=== PATIENT | male | born 1945 | race Caucasian/White ===

== ENCOUNTER → 2020-02-13 11:06 | Outpatient (CLI) | payer MEDICARE, OTHER, SELFPAY ==
[2020-02-13 13:13] LABS: COVID19 -Nasal RAPID Negative (Negative)
== END ==
PROVIDERS: Family Provider Family Medicine; PCP Family Medicine; Visit Provider Physician Assistant
DX: Z01.812 Encounter for preprocedural laboratory examination (principal); Z20.822 Contact with and (suspected) exposure to COVID-19
CPT/HCPCS: 87635; C9803

== ENCOUNTER 2020-02-14 08:50 | Day surgery (SDC) | payer MEDICARE, OTHER, SELFPAY ==
[2020-02-14] MEDS: CATARACT EYE COMPOUND (10 DROPS/SYRINGE) 3 DROPS EYE-OP (10:06)
[2020-02-14] MEDS: PROPARACAINE 0.5% OPHTH SOL 2 DROPS EYE-OP (10:06)
[2020-02-14 10:11] VITALS: BP 128/71; PULSE 68; RESP 16; TEMP 36.5; O2SAT 99; BMI 24.7
--- NOTE | 2020-02-14 11:17 | PM.PREOP ---
Pre-operative Note Interval Note History & Physical reviewed/Exam performed by Physician: Yes Changes to H&P: No
--- NOTE | 2020-02-14 11:17 | PM.OP.1 ---
Operative Date/Time/Diagnoses Pre-op diagnosis: Nuclear cataract right eye Procedure & Clinicians Procedure: Cataract Surgery Same procedure as scheduled: Yes Surgeon: Abelino Oneil Anesthesia Type: MAC +/- and Sedation Operative Notes Procedure in detail: Patient brought to the operating suite. Tetracaine drops placed in the right eye. Patient was prepped and draped in sterile manner. Wire lid speculum was placed in the eye. Betadine drops were placed on the eye. This was irrigated. Lidocaine jelly was placed on the eye. A paracentesis port was created with a side-port blade. 0.1 mL 1% preservative free lidocaine was injected into the anterior chamber. The anterior chamber was deepened with viscoelastic. 2.6 mm keratome was used to create a temporal clear corneal incision. Cystotome and Utrata forceps were used to create continuous tear capsulorrhexis. Balanced salt solution was used to hydro dissect the nucleus. The phacoemulsification handpiece was inserted and the nucleus was removed using the stop and chop technique. The irrigation aspiration handpiece was inserted and the remaining cortex was removed. Anterior chamber was deepened with viscoelastic. An Haskins ZCB00 intraocular lens with a power of 20.0 was injected into the capsular bag. Irrigation aspiration handpiece was inserted and the remaining viscoelastic was removed. Incision was hydrated with balanced salt solution and found to be leak free with pressure with Weck-Agata sponges. 0.1 mL Vigamox injected anterior chamber. 0.3 mL Kenalog 10 mg was injected subconjunctivally. Lid speculum was removed. The patient left the operating room in excellent condition. Complications: none Post-operative Condition: stable Disposition: same day surgery
[2020-02-14] MEDS: CHONDROIDTIN/SOD HYALURONATE 1.05 ML SYRINGE INTRAOCULA (11:38)
[2020-02-14] MEDS: LIDOCAINE JELLY 2% 5 ML 1 APPLIC TOP (11:38)
[2020-02-14] MEDS: TRIAMCINOLONE 50 MG/5 ML VIAL INJ (11:39)
[2020-02-14] MEDS: TETRACAINE 0.5% OPHTH DROPS 4 ML 2 DROPS EYE-OP (11:39)
[2020-02-14] MEDS: MOXIFLOXACIN INJ 5 MG/ML VIAL EYE-OP (11:39)
[2020-02-14] MEDS: PHENYLEPHRINE/LIDOCAINE VIAL (OR) 0.2 ML EYE-OP (11:39)
[2020-02-14] MEDS: BALANCED SALT IRRIG SOLN NO.2 500 ML, EPINEPHrine 1 MG IRR (11:40)
[2020-02-14 12:02] VITALS: BP 127/79; PULSE 69; RESP 16; TEMP 35.9; O2SAT 97
== END 2020-02-14 12:10 | disposition home or self-care (01) ==
PROVIDERS: Family Provider Family Medicine; PCP Family Medicine; Referring Provider Family Medicine; Visit Provider Ophthalmology
PROC: (CPT 66984; principal; 2020-02-14 10:45)
DX: H25.11 Age-related nuclear cataract, right eye (principal)
CPT/HCPCS: 66984; J0171; J2250; J3010; J3301

== ENCOUNTER → 2020-08-02 12:12 | Outpatient (CLI) | payer MEDICARE, OTHER, SELFPAY ==
--- NOTE | 2020-08-02 12:17 | DI.MRI.S_ITS ---
PROCEDURE: MR HEAD/BRAIN WO/W CON INDICATIONS: Dizziness and giddiness TECHNIQUE: Noncontrast axial T1 spin echo, axial T2 fast spin echo, sagittal and axial FLAIR, coronal T2 fast spin echo, axial gradient echo, axial diffusion and ADC through the brain. After the administration of contrast, axial and coronal T1 spin echo with fat saturation through the brain. COMPARISON: None. FINDINGS: Image quality: Excellent. CSF spaces: Basal cisterns are patent. No extra-axial fluid collections. Ventricles are normal in size and shape. Brain: No midline shift. No intracranial bleeds or masses. No abnormal intracranial enhancement. There is cerebral volume loss for age. There is periventricular white matter chronic small vessel ischemic change. The brainstem appears normal. Diffusion-weighted images demonstrate no acute ischemic insults. No chronic ischemic insults. Normal intravascular flow voids are present. Skull and face: Calvarial marrow is normal in signal. Orbits appear normal. Sinuses: Sinuses and mastoids appear clear. IMPRESSION: No evidence of acute ischemia. No acute intracranial signal abnormality or enhancement. Dictated by: Bernardo Guerrero M.D. on 08/02/2020 at 13:13 Approved by: Bernardo Guerrero M.D. on 08/02/2020 at 13:18
== END ==
PROVIDERS: Family Provider Family Medicine; PCP Family Medicine; Referring Provider Family Medicine; Visit Provider Family Medicine
DX: R42 Dizziness and giddiness (principal)
CPT/HCPCS: 70553

== ENCOUNTER → 2023-05-08 09:56 | Outpatient (CLI) | payer MEDICARE, OTHER, SELFPAY ==
--- NOTE | 2023-05-08 09:59 | DI.CT.S_ITS ---
PROCEDURE: CT ABDOMEN PELVIS W CON INDICATIONS: pelvic pain TECHNIQUE: After the administration of intravenous contrast, axial sections acquired from the lung bases to the pubic symphysis. Coronal and sagittal reformats were performed. For radiation dose reduction, the following was used: automated exposure control, adjustment of mA and/or kV according to patient size. COMPARISON: None. FINDINGS: Image quality: Diagnostic. Lower Chest: No significant findings. Fat containing left Bochdalek hernia. ABDOMEN: Liver: Nodular enhancement at the right dome of the liver, (2/10). There is peripheral ill-defined enhancement. Multiple well-circumscribed hepatic cysts. Gallbladder: Decompressed. Biliary ducts: No biliary dilation. Pancreas: No ductal dilation. Spleen: Size is within normal limits. Adrenal Glands: No adrenal nodules. Kidneys and Ureters: No hydronephrosis. No solid mass. No complex renal cystic lesion which requires follow up. Stomach and Bowel: Sigmoid colon diverticulosis. Minimal inflammatory change in the left lower quadrant, (2/66). This is consistent with diverticulitis. No extraluminal gas or fluid collection. There is associated colonic wall thickening. No small bowel obstruction. The stomach is not distended. Normal appendix. Peritoneum: No abnormal intraperitoneal fluid. No free air. Ventral Wall: No significant ventral hernia. Abdominal Nodes: No retroperitoneal or mesenteric adenopathy by size criteria. Vessels: Aorta and inferior vena cava are normal in size. PELVIS: Pelvic Organs: Prostatomegaly. Bladder: No stone. Pelvic Nodes: No enlarged lymph nodes. Miscellaneous: Fat containing inguinal hernias are seen. Bones: No aggressive osseous abnormality. Multilevel DDD. Bilateral L5 pars defect. IMPRESSION: 1. Left lower quadrant minimal diverticulitis. No extraluminal gas or fluid collection. 2. Associated sigmoid colon wall thickening. Recommend further evaluation with colonoscopy if not recently performed. 3. Nodular enhancement at the right dome of the liver. This could represent a hemangioma. Recommend further characterization with multiphase liver CT or MRI. Dictated by: Poncho Cade M.D. on 05/08/2023 at 15:58 Approved by: Poncho Cade M.D. on 05/08/2023 at 16:12
[2023-05-08 10:33] LABS: Estimated Glomerular Filt Rate > 60 mL/min (>60)
== END ==
PROVIDERS: Radiology Diagnostic Radiology; Family Provider Family Medicine; PCP Family Medicine; Referring Provider Family Medicine; Visit Provider Family Medicine
DX: K57.30 Diverticulosis of large intestine without perforation or abscess without bleeding (principal); R10.2 Pelvic and perineal pain; K40.90 Unilateral inguinal hernia, without obstruction or gangrene, not specified as recurrent; K76.89 Other specified diseases of liver
CPT/HCPCS: 36415; 74177; 82565; Q9967

== ENCOUNTER → 2023-11-05 09:35 | Outpatient (CLI) | payer MEDICARE, OTHER, SELFPAY ==
--- NOTE | 2023-11-05 19:52 | DI.NM.S_ITS ---
DATE OF SERVICE: 11/05/2023 PROCEDURE: Exercise perfusion study. INDICATIONS: Exertional shortness of breath with underlying hyperlipidemia. The patient is 78 years old male. RADIOPHARMACEUTICAL: 25.6 millicuries technetium-99m Myoview IV was injected at stress and 11.7 millicuries technetium-99m Myoview IV was injected at rest. CARDIAC STRESS: The patient underwent exercise perfusion study under the supervision of an attending staff. He walked on Yoshi protocol for 9 minutes and achieved 9.7 METS of workload, YEE -59%, maximum heart rate 142, which was 101% of target heart rate and peak blood pressure 160/78 with normal blood pressure response. Baseline rhythm was sinus with left axis. During stress, no convincing ischemic changes seen. No significant arrhythmias. No chest pain. Had some shortness of breath. RAW DATA: There is increased subdiaphragmatic activity. Gut shadow encroaching the inferior border of the heart. GATED STUDY: Resting LV ejection fraction 72% and stress LV ejection fraction 76% without any obvious wall motion abnormalities. Resting end- diastolic volume 106 mL. TID ratio 0.81, which is within normal limits. MYOCARDIAL PERFUSION SCAN: Stress supine, resting supine and stress prone images were compared to each other. Stress supine and resting supine images revealed small size, mildly decreased perfusion of base to mid inferior wall, which improved during stress prone images, however, stress prone images, there is a new distal inferolateral defect, which was not seen during stress supine and resting supine images. This tells shifting tissue attenuation artifact. No convincing ischemia/infarction. CONCLUSION: I will call this study likely a normal myocardial perfusion study with evidence of shifting tissue attenuation artifact without any convincing ischemia/infarction as stated above. Excellent exercise tolerance. YEE -59%, walked on Yoshi protocol for 9 minutes. Normal hemodynamic response. No ischemic EKG changes. No complex arrhythmia. No chest pain. Preserved LV function without any significant wall motion abnormalities. Overall, low-risk exercise perfusion study. Salty Ramirez - YASIR/caity/MARCUS doc#: [id number]/job#: [id number] dd: 11/05/2023 16:56:00 dt: 11/05/2023 19:38:00 DICTATING MD/COPIES TO: Manuel Mahoney MD COPIES MNE: ALHAJI;
== END ==
PROVIDERS: Family Provider Family Medicine; PCP Family Medicine; Referring Provider Family Medicine; Visit Provider Family Medicine
DX: R06.09 Other forms of dyspnea (principal); E78.2 Mixed hyperlipidemia
CPT/HCPCS: 78452; 93017; A9502

== ENCOUNTER 2024-05-18 10:16 | Day surgery (SDC) | payer MEDICARE, OTHER, SELFPAY ==
[2024-05-06 14:01] VITALS: BMI 26.0
[2024-05-18 10:37] VITALS: BMI 24.9
[2024-05-18 10:50] VITALS: BP 129/76; PULSE 68; RESP 16; TEMP 36.3; O2SAT 97
[2024-05-18] MEDS: LACTATED RINGERS 1,000 ML 42 ML IV (10:54)
--- NOTE | 2024-05-18 11:15 | PM.PREOP ---
Pre-operative Note Interval Note History & Physical reviewed/Exam performed by Physician: Yes Changes to H&P: No
[2024-05-18] MEDS: CEFAZOLIN 2 GM/100 ML PREMIX 100 ML IV (11:50)
[2024-05-18] MEDS: BUPIVACAINE 0.25% W/ EPI 30 ML VIAL INJ (12:16)
[2024-05-18] MEDS: LIDOCAINE 1% 20 ML INJ (12:16)
--- NOTE | 2024-05-18 12:24 | PM.OP.1 ---
Operative Date/Time/Diagnoses Date of procedure: 05/18/24 Time of procedure: 12:24 Pre-op diagnosis: Left inguinal hernia Post-op diagnosis: same Procedure & Clinicians Procedure: Open repair of left inguinal hernia with mesh Same procedure as scheduled: Yes Indications: Painful left inguinal hernia Surgeon: Freddie Brooke Instrument Mechanics Supervisor: Angel Aly Click Yes if Unassisted: No Anesthesia Type: General Operative Notes Findings: Indirect hernia containing fat Closure Type: primary Specimen(s): none sent Prosthetic devices, grafts, tissues, transplants, or devices: Large Bard PerFix plug Estimated Blood Loss (mL): 10 Procedure in detail: Patient was brought to the operating room suite. General anesthesia was induced. The groin was shaved prepped and draped in the usual fashion. Total 30 mL of 0.5% Marcaine was used to perform an ilioinguinal nerve block and cord block and field block. Transverse incision was made over the groin and carried down to the external oblique fibers with Bovie electrocautery. The external oblique fibers were opened along the direction of the fibers and retracted superiorly and inferiorly. The floor of the inguinal canal was inspected to evaluate for direct defect. The cord structures were ensnared with a Anna drain. There was an indirect defect that was dissected free from the cord structures and along with the large cord lipoma was reduced back into the abdomen. A large Bard PerFix plug was placed through the indirect defect. A patch was placed over the floor. 2-0 PDS was used to affix the patch from Elijah's ligament with a running stitch inferiorly along the inguinal ligament. The 2 leaflets and plug were all brought together and affixed to recreate the deep ring. Another 2-0 PDS suture was used to affix the mesh to the conjoined tendon thus reapproximating the floor. The ilioinguinal nerve was identified and preserved. External oblique was closed with running 3-0 Vicryl. Franklin's closed 3-0 Vicryl. Skin was closed with 4-0 Monocryl and Dermabond. Patient tolerated the procedure well was transferred to PACU in stable condition for anticipated same-day discharge. Complications: none Post-operative Condition: stable Disposition: PACU Plan for aftercare: Home
[2024-05-18 12:30] VITALS: BP 131/74; PULSE 87; RESP 12; TEMP 36.3; O2SAT 94
[2024-05-18 12:34] VITALS: BP 127/71; PULSE 88; RESP 12; TEMP 36.2; O2SAT 95
[2024-05-18 12:39] VITALS: BP 127/69; PULSE 81; RESP 16; TEMP 36.2; O2SAT 95
[2024-05-18 12:44] VITALS: BP 136/70; PULSE 80; RESP 12; TEMP 36.3; O2SAT 97
[2024-05-18 13:03] VITALS: BP 134/71; PULSE 80; RESP 16; TEMP 36.1; O2SAT 96
== END 2024-05-18 13:10 | disposition home or self-care (01) ==
PROVIDERS: Family Provider Family Medicine; PCP Family Medicine; Referring Provider Surgery; Visit Provider Surgery
PROC: (CPT 49505; principal; 2024-05-18 12:45)
DX: K40.90 Unilateral inguinal hernia, without obstruction or gangrene, not specified as recurrent (principal); D17.6 Benign lipomatous neoplasm of spermatic cord
CPT/HCPCS: 49505; C1781; J0690; J2704; J3010

== ENCOUNTER 2024-05-31 01:15 | Emergency (ER) | payer MEDICARE, OTHER, SELFPAY ==
[2024-05-31 02:04] VITALS: PULSE 58; O2SAT 98
[2024-05-31 02:09] VITALS: BP 138/65; PULSE 65; RESP 17; TEMP 36.5; O2SAT 98; BMI 23.7
--- NOTE | 2024-05-31 02:19 | ED_ITS ---
HPI - Abdominal Pain General Chief Complaint: Abdominal Pain Stated Complaint: hernia sx [id number], popped out causing px Time Seen by Provider: 05/31/24 02:19 Source: patient Mode of arrival: Ambulatory History of Present Illness HPI narrative: 78-year-old male with a history of hypertension hyperlipidemia CVA comes into the ED from home for evaluation of inguinal/pelvic pain, he states that approximately 14 days ago he had a elective inguinal hernia repair with mesh by Dr. Brooek, states that everything was going fine until last night when he noticed some minor discomfort noticed that it was a little bit swollen, he is worried that he might have had his hernia ?popped out. He states that he has an appointment with Dr. Brooke today at 10:00 a.m., patient denies any other symptoms at this time. Related Data Home Medications Medication Instructions Recorded Confirmed triamcinolone acetonide 0.1 % topical DAILY 04/20/23 04/28/24 topical ointment atorvastatin 80 mg tablet 80 mg PO DAILY 12/18/23 05/18/24 aspirin 81 mg tablet,delayed 81 mg PO DAILY 01/28/24 05/18/24 release Previous Rx's Medication Instructions Recorded ezetimibe 10 mg tablet (Zetia) 10 mg PO DAILY #90 tabs 12/18/23 meloxicam 15 mg tablet 15 mg PO DAILY #30 tabs 05/18/24 oxycodone 5 mg tablet 5 mg PO Q8H PRN pain, severe #7 05/18/24 tabs tizanidine 2 mg tablet 2 mg PO Q8H PRN muscle spasticity 05/18/24 or pain #90 tabs Allergies Allergy/AdvReac Type Severity Reaction Status Date / Time HORSE SERUM Allergy Intermediate HORSE Uncoded 05/18/24 10:35 SERUM DERIVED PRODUCTS RASH/SWELLING TETNUS TOXOID Allergy Intermediate RASH/SWELLI Uncoded 05/18/24 10:35 NG Review of Systems Review of Systems Narrative: General: Denies fever, chills, weight loss HEENT: Denies headache, eye drainage, eye irritation, head trauma, sore throat, voice change Cardiovascular: Denies any chest pain, palpitations, tachycardia Respiratory: Denies any shortness of breath, cough, wheeze, stridor GI/: Positive swelling to left inguinal region, Denies any abdominal pain, nausea, vomiting, diarrhea, bright red blood per rectum, melanotic stools, urinary frequency, urinary retention, dysuria, hematuria MSK: Denies any joint pain, muscle pains, swelling Skin: Denies any rashes, lesions, discoloration Neuro: Denies any headache, lightheadedness, dizziness, fainting, weakness Psych: Denies SI/HI Patient History Medical History Sleep apnea CVA (cerebral vascular accident) Social History household members: spouse lives independently: Yes occupational status: previously employed alcohol intake: current substance use type: does not use alcohol intake frequency: 0-2 drinks per day Exam Narrative Exam Narrative: General: Cooperative, well-developed, not in acute distress HEENT: Normocephalic, atraumatic, PERRLA, normal sclera, eyelids normal Neck: Active full range of motion, atraumatic Chest: Normal to inspection, negative crepitus, no overlying erythema ecchymosis Respiratory: Normal respiratory effort, not in acute respiratory distress, clear to auscultation bilaterally negative cough, wheeze, tachypnea, rhonchi, rales Cardiology: Regular rate rhythm negative gallop, murmur, rubs GI/: Patient with well-healing scar noted to the left anterior inguinal region, there is a mild tender to palpation mass noted to the area no overlying erythema ecchymosis or skin changes, soft, non rigid, normal to inspection, exam deferred MSK: Full active range of motion in all 4 extremities, atraumatic, no tenderness to palpation of any bony prominences Skin: No rashes or lesions noted Neuro: Alert awake oriented x3, moves all 4 extremities spontaneously, cranial nerves intact, able to answer all questions appropriately follows commands appropriately Psych: Cooperative, negative suicidal or homicidal ideations Initial Vital Signs Initial Vital Signs: Vital Signs Pulse Rate 58 L 05/31/24 02:04 Pulse Oximetry 98 05/31/24 02:04 Course Orders Ordered: ED Orders 05/31/24 02:19 CT abdomen pelvis w con Stat 05/31/24 02:33 Complete Blood Count AUTO DIFF Stat Comprehensive Metabolic Panel Stat Vital Signs Vital signs: Vital Signs - 8 hr 05/31/24 02:04 05/31/24 02:09 05/31/24 02:30 Temperature 97.7 F Pulse Rate 58 L 65 66 Respiratory Rate 17 Blood Pressure 138/65 Pulse Oximetry 98 98 98 Oxygen Delivery Method Room Air Room Air 05/31/24 03:00 05/31/24 03:00 Temperature Pulse Rate 72 Respiratory Rate 17 Blood Pressure 134/69 Pulse Oximetry 98 Oxygen Delivery Method Room Air MDM - Abdominal Pain Differential Diagnosis Differential diagnosis: Likely other (Inguinal hernia, postop seroma) Lab Data 05/31/24 02:33 05/31/24 02:33 Labs: Lab Results 05/31/24 Range/Units 02:33 WBC 7.2 (4.5-11.0) X10^3/uL RBC 4.37 L (4.5-5.9) X10^6/uL Hgb 13.4 L (13.5-17.5) g/dL Hct 40.1 L (41-53) % MCV 91.6 (80-100) fL MCH 30.7 (26-34) PG MCHC 33.5 (30-36) % RDW 14.3 (11.6-14.8) % Plt Count 203 (150-400) X10^3/uL Neut % (Auto) 51.9 (50-75) % Lymph % (Auto) 34.6 (25-40) % [place] % (Auto) 6.8 (3-14) % Eos % (Auto) 5.8 H (2-4) % Baso % (Auto) 0.9 (0-2) % Neut # (Auto) 3700 (7045-7889) /uL Lymph # (Auto) 2500 (2343-4696) /uL [place] # (Auto) 500 (0-900) /uL Eos # (Auto) 400 (0-450) /uL Baso # (Auto) 100 (0-100) /uL Sodium 138 (137-145) mmol/L Potassium 4.2 (3.4-5.1) mmol/L Chloride 105 (98-107) mmol/L Carbon Dioxide 25 (22-32) mmol/L BUN 18 (9-20) mg/dL Creatinine 0.76 (0.66-1.25) mg/dL Estimated GFR > 60 (>60) mL/min BUN/Creatinine Ratio 23.7 H (6-22) Glucose 92 (80-110) mg/dL Calcium 8.7 (8.4-10.2) mg/dL Total Bilirubin 0.4 (0.2-1.3) mg/dL AST 55 (17-59) IU/L ALT 48 (<50) IU/L Alkaline Phosphatase 67 (38-126) U/L Total Protein 6.5 (6.3-8.2) g/dL Albumin 4.0 (3.5-5.0) g/dL Globulin 2.5 (1.7-4.1) g/dL Albumin/Globulin Ratio 1.6 (1.0-2.8) Imaging Data CT scan - abdomen/pelvis: Radiologist's Impression: Preliminary read showing soft tissue mass versus hematoma within the left inguinal canal measuring 5.3 cm with adjacent induration of the subcutaneous fat. Just deep to the left inguinal canal is a cystic appearing lesion MDM Narrative Medical decision making narrative: 78-year-old male with a history of CVA, hyperlipidemia presenting for swelling and discomfort to left inguinal region, he states that he had a recent hernia repair with mesh, states he has been healing fine until yesterday noticed some mild discomfort and noticed some swelling to that area, states that it is a little tender, states that he is worried that it is secondary to his hernia popping out again. This was an elective hernia repair. He states that he was never really having any pain or discomfort but just wanted it fixed. Review of records show that patient had unilateral inguinal hernia repair with mesh performed by Dr. Brooke on 05/18/2024. On exam patient with healing scar to the anterior left inguinal region, mild tenderness to palpation with swelling with no overlying skin changes. Patient had lab work imaging performed here in the emergency department. Patient without any leukocytosis, CT scan showing a mass versus hematoma in the left inguinal canal no hernia. 0445: Had discussion with general surgeon Dr. Del Real, reviewed case and CT scan findings with him, agrees that there is no acute interventions needed, the swelling most likely hematoma versus seroma, states patient should follow up with Dr. Brooke for his scheduled appointment today at 10:00 a.m., no additional interventions or recommendations at this time. This was informed/instructed to the patient, he understands and agrees with being discharged home with outpatient follow up. Discharge Plan Departure Patient Disposition: Home Clinical Impression: Hematoma Activity Restrictions/Additional Instructions: Please follow up with your general surgeon for your scheduled appointment today Please follow up with your primary care doctor Please read the discharge instructions sheet carefully and bring all papers to all doctor follow-up visits, as it may contain information that your doctor may want to see. Disease processes change and evolve, if your symptoms worsen or if you develop any new symptoms that are concerning to you please return for evaluation. Your evaluation today does not show any evidence of any life- threatening/serious illnesses requiring admission to the hospital or surgery. Please follow-up with your doctor for re-evaluation in approximately 1 day. Seek immediate medical attention for any worrisome symptoms. *If you do not have a primary care provider please contact the [facility] Resource line at [phone]. They will ask some questions about your medical history and help get you set up with a doctor in the community. Prescriptions: No Action tizanidine 2 mg tablet 2 mg PO Q8H PRN (Reason: muscle spasticity or pain) Qty: 90 0RF meloxicam 15 mg tablet 15 mg PO DAILY Qty: 30 0RF oxycodone 5 mg tablet 5 mg PO Q8H PRN (Reason: pain, severe) Qty: 7 0RF atorvastatin 80 mg tablet 80 mg PO DAILY ezetimibe [Zetia] 10 mg tablet 10 mg PO DAILY Qty: 90 3RF aspirin 81 mg tablet,delayed release (DR/EC) 81 mg PO DAILY triamcinolone acetonide 0.1 % ointment topical DAILY Referrals: Gordon Steven MD [Primary Care Provider] - Stand Alone Forms: Patient Portal/API/Survey
--- NOTE | 2024-05-31 02:19 | DI.CT.S_ITS ---
PROCEDURE: CT ABDOMEN PELVIS W CON INDICATIONS: s/p left inguina hernia repair with swelling TECHNIQUE: After the administration of intravenous contrast, axial sections acquired from the lung bases to the pubic symphysis. Coronal and sagittal reformats were performed. For radiation dose reduction, the following was used: automated exposure control, adjustment of mA and/or kV according to patient size. COMPARISON: [facility], CT, CT ABDOMEN PELVIS W CON, 05/08/2023, 11:18. FINDINGS: Image quality: Diagnostic. Lower Chest: No significant findings. ABDOMEN: Liver: There is redemonstration of ill-defined peripheral nodular enhancement at the hepatic dome. Multiple of hepatic cysts and additional subcentimeter hypodensities which are too small to characterize. Gallbladder: No radiopaque gallstones or wall thickening. Biliary ducts: No biliary dilation. Pancreas: No ductal dilation. Spleen: Size is within normal limits. Adrenal Glands: No adrenal nodules. Kidneys and Ureters: No hydronephrosis. No solid mass. No complex renal cystic lesion which requires follow up. Stomach and Bowel: Normal colonic caliber, without significant wall thickening. Sigmoid diverticulosis without acute inflammation. Peritoneum: No abnormal intraperitoneal fluid. No free air. Ventral Wall: No significant ventral hernia. Abdominal Nodes: No retroperitoneal or mesenteric adenopathy by size criteria. Vessels: Aorta and inferior vena cava are normal in size. PELVIS: Pelvic Organs: Unremarkable. Bladder: No bladder wall thickening, accounting for underdistention. Pelvic Nodes: No enlarged lymph nodes. Miscellaneous: Status post left inguinal repair with hematoma in the soft tissues measuring approximately 2.5 x 4.3 x 4.3 cm (AP by ML by SI, 112, ). There is trace fluid seen within the inguinal canal. Bones: No aggressive osseous abnormality. Multilevel degenerative changes of the visualized spine. Bilateral L5 pars defects. IMPRESSION: Status post left inguinal repair with soft tissue hematoma measuring up to 4.3 cm with fluid seen within the inguinal canal, probable postoperative seroma. Nodular peripheral enhancing mass at the hepatic dome. Finding may represent meningioma. Recommend further characterization with contrast-enhanced multiphase liver or MRI protocol. Findings are not significantly changed from preliminary interpretation provided by [facility]. Approved by: Fabiana Schwab M.D.,Ph.D. on 05/31/2024 at 8:31
[2024-05-31 02:30] VITALS: PULSE 66; O2SAT 98
[2024-05-31 02:45] LABS: Add Manual Diff / Slide Review NO; Basophils Absolute Auto 100 /uL (0-100); Basophils Percent Auto 0.9 % (0-2); Eosinophils Absolute Auto 400 /uL (0-450); Eosinophils Percent Auto 5.8 % (2-4); Hematocrit 40.1 % (41-53); Hemoglobin 13.4 g/dL (13.5-17.5); Lymphocytes Absolute Auto 2500 /uL (1100-4500); Lymphocytes Percent Auto 34.6 % (25-40); Mean Corpuscular HGB Conc 33.5 % (30-36); Mean Corpuscular Hemoglobin 30.7 PG (26-34); Mean Corpuscular Volume 91.6 fL (80-100); Monocytes Absolute Auto 500 /uL (0-900); Monocytes Percent Auto 6.8 % (3-14); Neutrophils Absolute Auto 3700 /uL (1500-7000); Neutrophils Percent Auto 51.9 % (50-75); Platelet Count 203 X10^3/uL (150-400); Red Blood Cell Count 4.37 X10^6/uL (4.5-5.9); Red Cell Distribution Width 14.3 % (11.6-14.8); White Blood Cell Count 7.2 X10^3/uL (4.5-11.0)
[2024-05-31 03:00] VITALS: BP 134/69; PULSE 72; RESP 17; O2SAT 98
[2024-05-31 03:04] LABS: Alanine Aminotransferase 48 IU/L (<50); Albumin Globulin Ratio 1.6 (1.0-2.8); Alkaline Phosphatase 67 U/L (38-126); Aspartate Aminotransferase 55 IU/L (17-59); BUN Creatinine Ratio 23.7 (6-22); Bilirubin Total 0.4 mg/dL (0.2-1.3); Blood Urea Nitrogen 18 mg/dL (9-20); Calcium 8.7 mg/dL (8.4-10.2); Carbon Dioxide 25 mmol/L (22-32); Chloride 105 mmol/L (98-107); Estimated Glomerular Filt Rate > 60 mL/min (>60); Globulin 2.5 g/dL (1.7-4.1); Glucose 92 mg/dL (80-110); HEMOLYSIS < 15 (0-50); Potassium 4.2 mmol/L (3.4-5.1); Sodium 138 mmol/L (137-145); Total Protein 6.5 g/dL (6.3-8.2)
[2024-05-31 04:52] VITALS: PULSE 63
[2024-05-31 04:53] VITALS: BP 154/71; PULSE 63; RESP 17; O2SAT 98
== END 2024-05-31 05:02 | disposition home or self-care (01) ==
PROVIDERS: Emergency Provider Student in an Organized Health Care Education/Training Program; Family Provider Family Medicine; PCP Family Medicine
DX: L76.32 Postprocedural hematoma of skin and subcutaneous tissue following other procedure (principal); Z86.73 Personal history of transient ischemic attack (TIA), and cerebral infarction without residual deficits
CPT/HCPCS: 36415; 74177; 80053; 85025; 99283; 99284; Q9967

== ENCOUNTER → 2024-10-19 09:42 | Outpatient (CLI) | payer MEDICARE, OTHER, SELFPAY ==
[2024-10-19 20:21] LABS: Add Manual Diff / Slide Review NO; Hematocrit 39.4 % (41-53); Hemoglobin 13.1 g/dL (13.5-17.5); Lymphocytes Absolute Auto 1900 /uL (1100-4500); Mean Corpuscular HGB Conc 33.2 % (30-36); Mean Corpuscular Hemoglobin 30.6 PG (26-34); Mean Corpuscular Volume 92.2 fL (80-100); Platelet Count 211 X10^3/uL (150-400)
[2024-10-19 20:26] LABS: Alanine Aminotransferase 32 IU/L (<50); Albumin 3.9 g/dL (3.5-5.0); Albumin Globulin Ratio 1.9 (1.0-2.8); Alkaline Phosphatase 66 U/L (38-126); Blood Urea Nitrogen 18 mg/dL (9-20); Calcium 8.7 mg/dL (8.4-10.2); Carbon Dioxide 27 mmol/L (22-32); Chloride 105 mmol/L (98-107); Cholesterol 150 mg/dL (140-199); Estimated Glomerular Filt Rate > 60 mL/min (>60); Globulin 2.1 g/dL (1.7-4.1); Glucose 98 mg/dL (70-99); HDL Cholesterol 102 mg/dL (40-60); HEMOLYSIS < 15 (0-50); Potassium 4.4 mmol/L (3.4-5.1); Sodium 138 mmol/L (137-145); Total Protein 6.0 g/dL (6.3-8.2); Triglycerides 53 mg/dL (35-150)
== END ==
PROVIDERS: Family Provider Family Medicine; PCP Family Medicine; Visit Provider Family Medicine
DX: E78.2 Mixed hyperlipidemia (principal); Z12.5 Encounter for screening for malignant neoplasm of prostate; I65.29 Occlusion and stenosis of unspecified carotid artery; I63.9 Cerebral infarction, unspecified; I65.09 Occlusion and stenosis of unspecified vertebral artery; D70.9 Neutropenia, unspecified
CPT/HCPCS: 80053; 80061; 85025; G0103

== ENCOUNTER → 2024-10-26 12:39 | Outpatient (CLI) | payer MEDICARE, OTHER, SELFPAY ==
[2024-10-26 19:23] LABS: Add Manual Diff / Slide Review NO; Hematocrit 39.1 % (41-53); Hemoglobin 13.2 g/dL (13.5-17.5); Lymphocytes Absolute Auto 2200 /uL (1100-4500); Mean Corpuscular HGB Conc 33.8 % (30-36); Mean Corpuscular Hemoglobin 30.6 PG (26-34); Mean Corpuscular Volume 90.5 fL (80-100); Platelet Count 189 X10^3/uL (150-400)
[2024-10-26 19:28] LABS: HEMOLYSIS 17 (0-50); Iron 108 ug/dL (49-181)
[2024-10-26 19:38] LABS: Percent Iron Saturation 36 % (20-50); Total Iron Binding Capacity 299 ug/dL (261-462); Transferrin 269 mg/dL (206-381)
[2024-10-26 20:22] LABS: Vitamin B12 777 pg/mL (239-931)
== END ==
PROVIDERS: Family Provider Family Medicine; PCP Family Medicine; Visit Provider Family Medicine
DX: D64.9 Anemia, unspecified (principal)
CPT/HCPCS: 82607; 83540; 83550; 85025

== ENCOUNTER → 2024-11-11 14:53 | Outpatient (CLI) | payer MEDICARE, OTHER, SELFPAY | LOC: LAB 14:54 | PROVIDERS: Family Provider Family Medicine; PCP Family Medicine; Visit Provider Family Medicine | DX: D64.9 Anemia, unspecified (principal) | CPT/HCPCS: 82274 ==